=== PATIENT | male | born 1990 | race Caucasian/White ===

== ENCOUNTER 2018-01-16 17:59 | Emergency (ER) | payer BC ==
[2018-01-16 18:41] VITALS: BP 142/69
--- NOTE | 2018-01-16 19:29 | UC ---
Lower Extremity/Ankle HPI - HPI Summary HPI Summary: pt tried to jump out of the way of a baseball and rolled L ankle. c/o pain and swelling. occured around 5pm. 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 hernia - Family History Known Family History: Positive: None - Social History Occupation: Employed Full-time Lives: With Family Alcohol Use: Weekly Substance Use Type: None Smoking Status (MU): Never Smoked Tobacco Type: Smokeless Tobacco - Immunization History Most Recent Influenza Vaccination: none Vaccination Up to Date: Yes Review of Systems Constitutional: Negative Skin: Negative Eyes: Negative ENT: Negative Respiratory: Negative Cardiovascular: Negative Gastrointestinal: Negative Genitourinary: Negative Motor: Negative Neurovascular: Negative Musculoskeletal: Other: - Pian/swelling L ankle Neurological: Negative Psychological: Negative Is Patient Immunocompromised?: No All Other Systems Reviewed And Are Negative: Yes Physical Exam Triage Information Reviewed: Yes Appearance: Well-Appearing Vital Signs: Initial Vital Signs Temp 98.4 F 01/16/18 18:32 Pulse 63 01/16/18 18:32 Resp 16 01/16/18 18:32 BP 142/69 01/16/18 18:32 Pulse Ox 98 01/16/18 18:32 Vital Signs Reviewed: Yes Eye Exam: Normal ENT Exam: Normal Neck: Positive: Supple, Nontender, No Lymphadenopathy Respiratory: Positive: Lungs clear, Normal breath sounds Cardiovascular: Positive: RRR, No Murmur Abdomen Description: Positive: Nontender, No Organomegaly, Soft Bowel Sounds: Positive: Present Musculoskeletal: Positive: Other: - LLE: hip, knee, achilles and foot atraumatic. ankle is swlooen, bruising and tender. s/v/m intact to the foot. Neurological: Positive: Alert Psychological: Positive: Age Appropriate Behavior Skin Exam: Normal Procedures - Procedure Summary Procedure Summary: Fiberglass posterior splint LLE. applied by myself. s/v intact to toes after. pt advised may not put weight on the leg. Diagnostics - Radiology No standard instances Xray Interpretation: Positive (See Comments) - fracture L ankle(see report) Radiology Interpretation Completed By: Radiologist Lower Extremity Course/Dx - Differential Dx/Diagnosis Provider Diagnoses: Fracture L ankle Discharge - Sign-Out/Discharge Documenting (check all that apply): Discharge - Discharge Plan Condition: Stable Disposition: HOME Patient Education Materials: Ankle Fracture (ED), Splint Care (ED) Forms: *Work Release Referrals: No Primary Care Phys,NOPCP [Primary Care Provider] - Saroj Osorio MD [Medical Doctor] - 1 Day - Billing Disposition and Condition Condition: STABLE Disposition: HOME
--- NOTE | 2018-01-16 19:57 | RAD ---
INDICATION: Ankle pain after twisting injury during baseball practice COMPARISON: None. TECHNIQUE: 3 views of the left ankle were obtained. FINDINGS: There is a minimally displaced obliquely oriented comminuted fracture at the distal left fibular malleolus. On the lateral view there is also a nondisplaced fracture at the posterior malleolus of the tibia. The remaining visualized bones are intact and appropriately aligned. There is no definite asymmetric widening of the ankle mortise. Soft tissue swelling is noted overlying the fibular malleolus.. IMPRESSION: LEFT ANKLE FRACTURE DESCRIBED ABOVE.
[2018-01-16] MEDS ORDERED: HYDROcodone/ACETAMIN 5-325 MG* 1 TAB PO ONE (19:58)
== END 2018-01-16 20:12 | disposition home or self-care (01) ==
LOC: UCCORT 17:59
DX: S82.62XA Displaced fracture of lateral malleolus of left fibula, initial encounter for closed fracture (principal); X50.0XXA Overexertion from strenuous movement or load, initial encounter; Y92.9 Unspecified place or not applicable
CPT/HCPCS: 99213; G0463

== ENCOUNTER 2018-06-01 12:45 | Emergency (ER) | payer BC ==
[2018-06-01 13:01] VITALS: BP 121/53
--- NOTE | 2018-06-01 13:41 | UC ---
Hand/Wrist HPI - HPI Summary HPI Summary: The patient is a 27-year-old male with left wrist pain 5-7 days. He has swelling on the volar aspect of his wrist. For the past 2 days his thenar eminence has been numb. He is right handed. He lifts weights. He recalls no injury to the wrist. - History Of Current Complaint Chief Complaint: UCUpperExtremity Stated Complaint: LEFT WRIST CONCERN Time Seen by Provider: 06/01/18 13:19 Hx Obtained From: Patient Onset/Duration: Gradual Onset, Lasting Days Severity Initially: Mild Severity Currently: Mild Pain Intensity: 2 Pain Scale Used: 0-10 Numeric Character Of Pain: Dull, Aching Aggravating Factor(s): Movement Alleviating Factor(s): Nothing Associated Signs And Symptoms: Positive: Numbness/Tingling Related History: Dominant Hand Right Hands: 1 - cystic mass/mobile - Allergies/Home Medications Allergies/Adverse Reactions: Allergies Allergy/AdvReac Type Severity Reaction Status Date / Time No Known Allergies Allergy Verified 06/01/18 12:56 Home Medications: Home Medications Acetaminophen [Acetaminophen Extra Strength] 500 mg PO Q6H PRN 06/01/18 [ History Confirmed 06/01/18] Ibuprofen TAB* [Advil TAB*] 600 mg PO Q6H PRN 06/01/18 [History Confirmed ] PMH/Surg Hx/FS Hx/Imm Hx Previously Healthy: Yes Other History Of: Negative For: HIV, Hepatitis B, Hepatitis C - Surgical History Surgical History: Yes Surgery Procedure, Year, and Place: sinus-deviated septum. hernia - Family History Known Family History: Positive: Hypertension - Social History Alcohol Use: Weekly Substance Use Type: None Smoking Status (MU): Current Every Day Smoker Type: Smokeless Tobacco Amount Used/How Often: 2-3 dips daily Length of Time of Smoking/Using Tobacco: On and Off Since Age 15 - Immunization History Most Recent Influenza Vaccination: none Vaccination Up to Date: Yes Review of Systems Constitutional: Negative Skin: Negative Eyes: Negative ENT: Negative Respiratory: Negative Cardiovascular: Negative Gastrointestinal: Negative Genitourinary: Negative Motor: Negative Neurovascular: Negative Musculoskeletal: Arthralgia Neurological: Negative Psychological: Negative Is Patient Immunocompromised?: No All Other Systems Reviewed And Are Negative: Yes Physical Exam Triage Information Reviewed: Yes Appearance: Well-Appearing, No Pain Distress, Well-Nourished Vital Signs: Initial Vital Signs Temp 98.1 F 06/01/18 12:54 Pulse 60 06/01/18 12:54 Resp 16 06/01/18 12:54 BP 121/53 06/01/18 12:54 Pulse Ox 99 06/01/18 12:54 Eyes: Positive: Conjunctiva Clear ENT: Negative: Nasal congestion, Nasal drainage, Trismus, Muffled voice, Hoarse voice Respiratory: Positive: Lungs clear, Normal breath sounds, No respiratory distress Cardiovascular: Positive: RRR, No Murmur, Pulses Normal Musculoskeletal: Positive: ROM Limited @, Other: - see image Neurological: Positive: Alert Psychological Exam: Normal Skin Exam: Normal Hand/Wrist Course/Dx - Course Course Of Treatment: advise of need to follow up with orthopedist - Differential Dx/Diagnosis Provider Diagnoses: left wrist ganglion cyst Discharge - Sign-Out/Discharge Documenting (check all that apply): Patient Departure - Discharge Plan Condition: Stable Disposition: HOME Patient Education Materials: Ganglion Cysts (ED), Splint Care (ED) Referrals: Saroj Osorio MD [Medical Doctor] - As Soon As Possible Additional Instructions: advil or alever splint I suggest ortho follow up - Billing Disposition and Condition Condition: STABLE Disposition: Home
== END 2018-06-01 13:43 | disposition home or self-care (01) ==
LOC: UCCORT 12:45
DX: M67.432 Ganglion, left wrist (principal)
CPT/HCPCS: 99212; G0463